=== PATIENT | male | born 1965 | race Caucasian/White ===

== ENCOUNTER → 2017-12-13 | Outpatient (CLI) | payer BC ==
[~2017-12-13] MED LIST: ASPIRIN 32325 MG/TAB PO; LIPITOR 40MG TA40 MG PO; NO HOME MEDICATIONS; PLAVIX 75MG TAB75 MG PO; TOPROL XL 25MG25 MG PO; VASOTEC 5MG5 MG/TAB PO; ZESTRIL2.5 MG PO
== END ==
LOC: COL.RAD 07:12
DX: M25.78 Osteophyte, vertebrae (principal); M48.03 Spinal stenosis, cervicothoracic region

== ENCOUNTER → 2018-01-08 | Outpatient (CLI) | payer BC ==
[~2018-01-08] VITALS: Ht 172.7 cm; Wt 79.8 kg
[~2018-01-08] MED LIST changes: +ASPIRIN E.C. 8181 MG PO
[2018-01-08 06:44] VITALS: BP 138/87; PULSE 61
[2018-01-08 08:15] VITALS: BP 126/84; PULSE 68
== END ==
LOC: COL.RAD 06:29
DX: M48.02 Spinal stenosis, cervical region (principal)
CPT/HCPCS: J1100

== ENCOUNTER → 2018-02-12 | Outpatient (CLI) | payer BC | LOC: MHCPAIN 10:05 | DX: G89.29 Other chronic pain (principal); M54.12 Radiculopathy, cervical region; M47.812 Spondylosis without myelopathy or radiculopathy, cervical region | CPT/HCPCS: G0463 ==

== ENCOUNTER → 2018-02-25 | Outpatient (CLI) | payer BC | LOC: MHCPAIN 13:13 | DX: M50.323 Other cervical disc degeneration at C6-C7 level (principal); M48.02 Spinal stenosis, cervical region | CPT/HCPCS: J1100; J2250; J3010; Q9967 ==

== ENCOUNTER → 2018-03-19 | Outpatient (CLI) | payer BC | LOC: COL.RAD 07:15 | DX: M19.012 Primary osteoarthritis, left shoulder (principal); M75.82 Other shoulder lesions, left shoulder; M75.112 Incomplete rotator cuff tear or rupture of left shoulder, not specified as traumatic ==

== ENCOUNTER → 2018-03-26 | Outpatient (CLI) | payer BC | LOC: MHCPAIN 08:36 | DX: G89.29 Other chronic pain (principal); M50.90 Cervical disc disorder, unspecified, unspecified cervical region; M54.12 Radiculopathy, cervical region | CPT/HCPCS: G0463 ==

== ENCOUNTER → 2018-07-22 | Outpatient (CLI) | payer BC | LOC: MHCPAIN 07:57 | DX: G89.29 Other chronic pain (principal); M50.90 Cervical disc disorder, unspecified, unspecified cervical region; M54.12 Radiculopathy, cervical region | CPT/HCPCS: G0463 ==

== ENCOUNTER → 2019-10-29 | Outpatient (CLI) | payer BC | LOC: MHCPAIN 07:48 | DX: M54.2 Cervicalgia (principal); M47.22 Other spondylosis with radiculopathy, cervical region; G89.29 Other chronic pain | CPT/HCPCS: G0463 ==

== ENCOUNTER → 2020-01-08 | Outpatient (CLI) | payer BC | LOC: MHCPAIN 07:44 | DX: M54.2 Cervicalgia (principal); G89.29 Other chronic pain; M54.12 Radiculopathy, cervical region | CPT/HCPCS: G0463; J1100; Q9967 ==

== ENCOUNTER → 2020-02-03 | Outpatient (CLI) | payer BC | LOC: MHCPAIN 15:29 | DX: M47.812 Spondylosis without myelopathy or radiculopathy, cervical region (principal); M54.2 Cervicalgia; G89.29 Other chronic pain | CPT/HCPCS: G0463 ==

== ENCOUNTER → 2021-03-15 | Outpatient (CLI) | payer BC | LOC: MHCPAIN 14:36 | DX: M47.812 Spondylosis without myelopathy or radiculopathy, cervical region (principal); M54.12 Radiculopathy, cervical region; G89.29 Other chronic pain | CPT/HCPCS: G0463 ==

== ENCOUNTER → 2021-04-14 | Outpatient (CLI) | payer BC | LOC: MHCPAIN 08:37 | DX: M47.812 Spondylosis without myelopathy or radiculopathy, cervical region (principal); M54.12 Radiculopathy, cervical region; G89.29 Other chronic pain | CPT/HCPCS: G0463; J1100; Q9967 ==

== ENCOUNTER → 2021-04-26 | Outpatient (CLI) | payer BC | LOC: MHCPAIN 14:52 | DX: M47.812 Spondylosis without myelopathy or radiculopathy, cervical region (principal); M54.12 Radiculopathy, cervical region | CPT/HCPCS: G0463 ==